=== PATIENT | male | born 1965 | race Caucasian/White ===

== ENCOUNTER 2022-08-10 19:27 | Emergency (ER) | payer MEDICAID, SELFPAY ==
[2022-08-10 19:28] VITALS: BP 160/90; PULSE 136; RESP 18; TEMP 36.7; O2SAT 100; BMI 23.4
--- NOTE | 2022-08-10 19:32 | EKG12_ITS ---
Test Reason : CP Blood Pressure : / mmHG Vent. Rate : 120 BPM Atrial Rate : 120 BPM P-R Int : 164 ms QRS Dur : 078 ms QT Int : 302 ms P-R-T Axes : 066 -36 042 degrees QTc Int : 426 ms Sinus tachycardia Left axis deviation Inferior infarct , age undetermined Abnormal ECG Confirmed by JANINE VARGAS, COTY ([id number]), health editor BENJAMIN IYER ([id number]) on 08/13/2022 9:13:00 AM Referred By: Confirmed By:COTY MEHTA MD
[2022-08-10 19:52] LABS: Absolute Lymphocyte Count 3.89 X10^3/uL (0.83-4.51); Absolute Neutrophil Count 6.9 X10^3/uL (2.0-7.7); Basophil# 0.07 X10^3/uL; Basophil% 0.6 % (0-1); Eosinophil# 0.12 X10^3/uL; Hematocrit 43.3 % (40-54); Hemoglobin 14.9 g/dL (13.0-16.5); Lymphocyte # 3.89 X10^3/ul (0.83-4.51); Lymphocyte % 33.4 % (19-41); Mean Corp Hgb Conc 34.4 g/dL (32-36); Mean Corpuscular Hgb 34.6 pg (27.0-32.0); Mean Corpuscular Volume 100.5 fL (80-94); Mean Platelet Vol. 9.5 fl (6.2-12.0); Monocyte# 0.61 X10^3/uL; Monocyte% 5.2 % (0-10); NRBC Flagged by Analyzer 0 % (0-5); Neutrophil # 6.93 X10^3/uL (2.7-7.7); Neutrophil % 59.5 % (47-70); Platelet Count 223 K/mm3 (150-450); RBC Distribution Width CV 13.1 % (11.6-14.6); RBC Distribution Width SD 48.7 fl (35.1-43.9); Red Blood Count 4.31 M/mm3 (4.6-6.2); White Blood Count 11.7 K/mm3 (4.4-11.0)
--- NOTE | 2022-08-10 19:55 | RAD_ITS ---
STUDY: XR Chest 1 View 08/10/2022 7:53 PM REASON FOR EXAM: Male, 56 years old. CHEST PAIN chest pain COMPARISON: 10/18/2014 TECHNIQUE: XR Chest 1 View FINDINGS: There is no demonstrated pleural abnormality. Normal heart size. Normal mediastinum. Normal gildardo. Prominent appearing increased interstitial lung markings. Normal visualized pulmonary arteries. There is atherosclerotic calcification of the aortic arch with tortuosity. There are diffuse degenerative changes of the visualized thoracic spine. There is degenerative osteoarthritis of the bilateral shoulders. There is no demonstrated abnormality of the visualized soft tissue structures of the upper abdomen. RAD/Chest 1 View (Portable) IMPRESSION: There are no acute findings. Electronically Signed: Brett Kang MD at 20:33 EDT ,
[2022-08-10 20:26] LABS: D-Dimer Quantitative (DVT/PE) 0.91 FEU/ug/m (0.27-0.49)
--- NOTE | 2022-08-10 20:27 | CT_ITS ---
STUDY: CTA Chest WO/W Contrast Injection 08/10/2022 9:24 PM REASON FOR EXAM: Male, 56 years old. Dyspnea, tachycardia elevated D-dimer TECHNIQUE: The examination was performed with the intravenous administration of IV 100mL Isovue-370 contrast material. Post-processing of the angiographic images was performed, with axial imaging and 3D reconstruction. MIPS images were obtained. Individualized dose optimization techniques were used for this CT. COMPARISON: 10.18.14. FINDINGS: There are degenerative changes of the shoulders. There is no pneumothorax. There is no demonstrated pleural abnormality. There are calcifications of the coronary arteries. Normal mediastinum. Normal hilar regions. Normal pulmonary arteries. There is atherosclerotic calcification of the aortic arch with tortuosity and elongation of the aortic arch and descending thoracic aorta. There are multi-level degenerative changes of the thoracic spine. The gallbladder is surgically absent. CT/CTA Chest W/WO Contrast IMPRESSION: No demonstrated pulmonary embolism or arterial dissection. There are no acute findings. Electronically Signed: Brett Kang MD at 21:26 EDT ,
[2022-08-10 20:28] VITALS: BP 163/88; PULSE 113; RESP 15; O2SAT 98
--- NOTE | 2022-08-10 20:28 | EX.ED.DYSGE1 ---
HPI History of Present Illness Chief Complaint: Chest Pain Detail of Chief Complaint: Chest pain, bilateral right arm numbness and shortness of breath Informant: patient Onset/Context/Timing Onset: Days (Onset middle of last week and has been constant for the past 3 days) Context: Sudden Onset Timing: Continuous Quality: Sharp prickly Location: Mid chest Current Severity: Moderate Maximum Severity: Severe Worsened by: Possibly breathing Relieved by: Nothing Associated Symptoms Associated Symptoms: Radiation to extremities and described as tingling Narrative Narrative: Patient is a 56-year-old male with history of coronary disease with placement of 2 stents, GERD, hypertension, and COPD who presents with sharp tingly midsternal chest pain radiating to both shoulders and arms with description of numbness in his extremities and associated shortness of breath. Patient states he always wheezes. He was recently placed on prednisone. He denies fever, chills night sweats. Denies weight gain or weight loss. He denies headache, visual, ocular auditory symptoms. He denies sore throat. He does have a cough which is nonproductive. This is not abnormal for him. He presently smokes 1/4 pack/day. 5 years ago he smoked 1 pack/day. He denies history of VTE. He denies leg pain, swelling discoloration. He denies GI or symptoms. Prior similar symptoms: Yes Recent Illness/Hospitalization: Yes (Seen at outside hospital.) [facility] Home Medications albuterol sulfate 90 mcg/actuation aerosol inhaler (Ventolin HFA) 1 - 2 puff inhalation Q4H PRN PRN Wheezing ##1 10/19/14 [Rx Last Taken Unknown] azithromycin 500 mg tablet (Zithromax TRI-DOUG) 500 mg PO DAILY 4 days 10/19/14 [Rx Last Taken Unknown] folic acid 1 mg tablet 1 mg PO BIDCM ##30 10/19/14 [Rx Last Taken Unknown] guaifenesin 1,200 mg tablet, extended release 12 hr (Mucus Relief ER) 1,200 mg PO BID ##20 10/19/14 [Rx Last Taken Unknown] lorazepam 1 mg tablet 1 mg PO BID PRN PRN Anxiety #14 tabs 10/19/14 [Rx Last Taken Unknown] metoprolol tartrate 25 mg tablet 25 mg PO BID ##0 10/19/14 [Rx Last Taken 10/18/14] pantoprazole 40 mg tablet,delayed release 40 mg PO DAILY ##30 10/19/14 [Rx Last Taken Unknown] prednisone 10 mg tablet 10 mg PO UD 9 days 10/19/14 [Rx Last Taken Unknown] tiotropium bromide 18 mcg capsule with inhalation device (Spiriva with HandiHaler) 1 puff inhalation DAILY ##1 10/19/14 [Rx Last Taken Unknown] Allergy/AdvReac Type Severity Reaction Status Date / Time acetaminophen [From [place]] Allergy Hives Verified 08/10/22 19:31 hydrocodone [From [place]] Allergy Hives Verified 08/10/22 19:31 nitroglycerin Allergy Other Verified 08/10/22 19:31 Social History (Updated 08/10/22 @ 20:[address] Moise Pate MD) household members: spouse Smoking Status: Current every day smoker tobacco type: cigarettes substance use type: does not use ROS ROS ED Constitutional Constitutional ED: Denies chills, fever(s), subjective, sweats or weight loss Eyes Eyes: Denies blurry vision, change in vision or diplopia ENT ENT ED: Denies ear pain, rhinorrhea or sore throat Cardiovascular Cardiovascular: Reports chest pain, palpitations and racing heartbeat; Denies orthopnea or paroxysmal nocturnal dyspnea Respiratory/Chest Respiratory/Chest: Reports cough, dyspnea and dyspnea on exertion; Denies orthopnea, paroxysmal nocturnal dyspnea or sputum Gastrointestinal Gastrointestinal: Denies abdominal pain, nausea or vomiting Genitourinary Genitourinary ED: Denies dysuria, hematuria or urinary frequency Musculoskeletal Musculoskeletal: Denies arthralgias, back pain, myalgias or neck pain Neurologic Neurologic: Denies headache(s), paresthesias or weakness Endocrine Endocrinology: Denies cold intolerance or heat intolerance Hematologic/Lymphatic Hematologic/Lymphatic: Reports as per HPI; Denies systems reviewed and no addt'l complaints, except as documented EXAM Physical Exam Const Vital Signs: 08/10/22 19:28 08/10/22 19:55 08/10/22 20:28 Temperature 98.0 F Temperature Source Temporal Pulse Rate 136 H 113 H Respiratory Rate 18 15 Respiratory Effort Blood Pressure 160/90 H 163/88 H Blood Pressure Mean 113 113 Pulse Ox 100 98 Oxygen Delivery Method Room Air Room Air Room Air 08/10/22 20:40 08/10/22 21:00 Temperature Temperature Source Pulse Rate 110 H Respiratory Rate 20 H Respiratory Effort Short of Breath Blood Pressure 116/81 H Blood Pressure Mean 92 Pulse Ox 97 Oxygen Delivery Method Room Air Positive well nourished and well developed Constitutional Narrative: Patient appears in mild respiratory distress. He is not tachypneic however. General Appearance ED: well developed; Negative for cyanotic, diaphoretic or pallor HEENT Reports dry mucous membranes HEENT Narrative: Head is atraumatic normocephalic. Ears normal. TMs normal. Nares patent without discharge. Posterior pharynx unremarkable. Mouth ED: Yes dry mucous membranes Mouth: dry mucous membranes Eyes PERRL and EOMs intact bilaterally General Eye ED: Negative for pale conjunctiva or scleral icterus Neck no lymphadenopathy, supple and no JVD Chest Wall inspection of chest normal and palpation of chest normal Resp No normal respiratory effort and No clear to auscultation bilaterally Resp Narrative: Minimal use of accessory muscles. Auscultation: wheezes expiratory wheezes and scattered wheezes (Bilateral) Cardio regular rhythm, S1 normal heart sound, S2 normal heart sound and no murmurs; Negative for regular rate Rate: tachycardic GI normal to inspection, nondistended, normoactive bowel sounds, non-tender, non-distended and no masses; Negative for hepatosplenomegaly Back/Spine no CVA tenderness Thoracic Spine / Upper Back: Negative for thoracic spinal tenderness Lumbar Spine / Lower Back: Negative for lumbar spinal tenderness Extremity normal to inspection Extremity Narrative: There is no asymmetry, swelling, discoloration, leg vein distention, palpable cords or tenderness along the distribution of the deep venous system. General Extremety ED: Negative for edema or tenderness General Extremity: Negative for edema Neuro oriented x3, CN's II-XII intact bilaterally and no sensory deficits noted Sensorium / Orientation: alert Skin no rashes or lesions noted, no wounds and skin turgor normal General Skin Exam: Negative for jaundice or pallor MDM MDM MDM Narrative Medical decision making narrative: Need to evaluate for cardiac ischemia, pulmonary embolus, doubt pneumonia and doubt COPD exacerbation. CBC was obtained to rule out anemia. BMP to assess renal function in the event that the D-dimer is elevated. Since D-dimer is elevated and troponin is normal CTA to evaluate for pulmonary embolus was ordered. History & Record Review Discussion w/independent historian: Patient Additional record(s) reviewed:: Prior outpatient record (Records from outside facility were reviewed.) and Prior labs Lab Data Attestation: I reviewed the patient's lab results. Lab results narrative: White count is cellular 11.7 thousand with no shift. 8 is normal. D-dimer is 0.91 and is abnormal even after correction for age. Basic metabolic panel is normal. Troponin with 48+ hours of pain is less than 7 and therefore rules out cardiac ischemia. Labs: Laboratory Results - last 24 hr 08/10/22 08/10/22 08/10/22 19:45 19:45 19:45 WBC 11.7 H RBC 4.31 L Hgb 14.9 Hct 43.3 MCV 100.5 H MCH 34.6 H MCHC 34.4 RDW Std Deviation 48.7 H RDW Coeff of [place] 13.1 Plt Count 223 MPV 9.5 Immature Gran % (Auto) 0.300 Neut % (Auto) 59.5 Lymph % (Auto) 33.4 [place] % (Auto) 5.2 Eos % (Auto) 1.0 Baso % (Auto) 0.6 Absolute Neuts (auto) 6.9 Absolute Lymphs (auto) 3.89 Nucleated RBC % 0 D-Dimer Quant (PE/DVT) 0.91 H* Sodium 136 Potassium 4.1 Chloride 105 Carbon Dioxide 26.0 Anion Gap 5 BUN 11 Creatinine 0.87 Estim Creat Clear Calc 92.82 Est GFR (MDRD) Af Amer 118 Est GFR (MDRD) Non-Af 97 BUN/Creatinine Ratio 12.7 Glucose 92 Calcium 9.1 Troponin I High Sens 6 Radiography Chest X-Ray - ED: 1 View and Read by ED Physician (Independently reviewed interpreted by me at 2027. Cardiac silhouette size unremarkable. Lung parenchyma is unremarkable. Perihilar region unremarkable. Osseous trucks unremarkable.) Diagnostic Testing: Clinical Impression(s) from Imaging Studies Chest X-Ray 08/10/22 19:55 IMPRESSION: There are no acute findings. Electronically Signed: Brett Kang MD at 20:33 EDT , Chest CTA 08/10/22 20:27 IMPRESSION: No demonstrated pulmonary embolism or arterial dissection. There are no acute findings. Electronically Signed: Brett Kang MD at 21:26 EDT , Rhythm Strip Rhythm Strip: Sinus Tach Rate: 128 Ectopy: None Treatment and Re-Evaluation :: Patient was informed with a normal troponin the chest pain is not cardiac in etiology. CT reveals no evidence of pulmonary pathology, hiatal hernia and no evidence of pulmonary embolus or dissection. Patient was informed the cause of his pain is unknown. He was also informed that 50% of patients who come in to the emergency room with chest pain the cause of the pain is not always known. Discharge Plan Triage Chief Complaint: Chest Pain ED Provider: Moise Pate Dx/Rx/DC Orders Clinical Impression: Chest pain of unknown etiology, Hypertension, History of CAD (coronary artery disease), History of COPD, Sinus tachycardia Instructions: ED Chest Pain, Noncardiac, ED Chest Pain, Uncertain Cause Prescriptions: No Action pantoprazole 40 MG tablet 40 mg PO DAILY Qty: 30 0RF Label Comments: acid reflux folic acid 1 MG tablet 1 mg PO BIDCM Qty: 30 0RF Label Comments: supplement guaifenesin [Mucus Relief ER] 1,200 MG tablet 1,200 mg PO BID Qty: 20 0RF Label Comments: cough prednisone 10 MG tablet 10 mg PO UD 9 Days 0RF Label Comments: steroid Rx Instructions: 30 mg daily x 3 days, then 20 mg daily x 3 days, 10 mg po daily x 3days then stop azithromycin [Zithromax TRI-DOUG] 500 MG tablet 500 mg PO DAILY 4 Days 0RF Label Comments: antibiotic albuterol sulfate [Ventolin HFA] 1 INHALER inhaler 1 - 2 puff inhalation Q4H PRN PRN (Reason: Wheezing) Qty: 1 0RF Label Comments: breathing metoprolol tartrate 25 MG tablet 25 mg PO BID Qty: 0 0RF Label Comments: BLOOD PRESSURE tiotropium bromide [Spiriva with HandiHaler] 1 PUFF inhaler 1 puff inhalation DAILY Qty: 1 0RF Label Comments: breathing lorazepam 1 MG tablet 1 mg PO BID PRN PRN (Reason: Anxiety) Qty: 14 0RF Primary Care Provider: Navya Rodriguez Referrals: Navya Rodriguez MD [Primary Care Provider] - 3-5 Days Disposition Disposition: Home, Self Care
[2022-08-10 20:45] LABS: Anion Gap 5 (5-15); BUN 11 mg/dL (7-18); BUN/Creat Ratio 12.7 RATIO (10-20); Calcium,Total 9.1 mg/dL (8.5-10.1); Chloride 105 mmol/L (98-107); Creatinine, Serum 0.87 mg/dL (0.70-1.30); EST Glomerular Filtration Rate 97 mL/min (>60); Est Glom Filt Rate - Afr Amer 118 mL/min (>60); Estimated Creatinine Clearance 92.82 ml/min; Glucose 92 mg/dL (74-106); Potassium 4.1 mmol/L (3.5-5.1); Sodium Level 136 mmol/L (136-145); Troponin-I HS (w/2H Reflex) 6 pg/mL (3.0-78.0)
[2022-08-10 21:00] VITALS: BP 116/81; PULSE 110; RESP 20; O2SAT 97
[2022-08-10 22:24] VITALS: BP 116/81; PULSE 119; RESP 22; O2SAT 100
== END 2022-08-10 22:29 | disposition home or self-care (01) ==
PROVIDERS: Emergency Provider Emergency Medicine; PCP Student in an Organized Health Care Education/Training Program; Visit Provider Emergency Medicine
DX: R07.9 Chest pain, unspecified (principal); I10 Essential (primary) hypertension; I25.10 Atherosclerotic heart disease of native coronary artery without angina pectoris; R00.0 Tachycardia, unspecified; F17.210 Nicotine dependence, cigarettes, uncomplicated; Z95.5 Presence of coronary angioplasty implant and graft
CPT/HCPCS: 71045; 71275; 80048; 84484; 85025; 85379; 93005; 99283; Q9967